=== PATIENT | male | born 1970 | race African-American/Black ===

== ENCOUNTER 2016-11-07 17:22 | Inpatient (IN) | payer OTHER ==
[~2016-11-07] VITALS: Ht 182.9 cm; Wt 126.7 kg
--- NOTE | ~2016-11-07 | 2DMMODE ---
[facility] [address] [place] [address] 2 D/M-MODE ECHOCARDIOGRAM Name: ERIK PERALES Room #: 209-P [facility] IN ..#: [id number] Admission: 11/07/16 Attend Phys: Francesca Watt Discharge: Date of : 68 Date of Service: 11/09/16 1522 Report #: [id number] THIS REPORT FOR: //name// APPROVED REPORT Study performed: 11/09/2016 11:53:20 EXAM: Comprehensive 2D, Doppler, and color-flow Echocardiogram Patient Location: Echo lab Room #: Formerly named [facility] Status: routine Other Information Study Quality: Adequate Indications CVA/TIA Hx: HTN, DM Echo Enhancing Agent Indication: Endocardial border delineation Agent(s) / Amount(s) Used: Definity 2 cc 2D Dimensions RVDd: 33.94 mm LVEF(%): 45.90 (>50%) IVSd: 14.84 (7-11mm) LVOT Diam: 22.27 (18-24mm) LVDd: 57.75 mm PWd: 15.08 (7-11mm) Ascending Ao: 38.68 (22-36mm) LVDs: 44.32 (25-40mm) Aortic Root: 38.68 mm Lopez's LVEF: 45.90 % Volumes Left Atrial Volume (Systole) Single Plane 4CH: 85.82 mL Single Plane 2CH: 63.80 mL LA ESV Index: 31.00 mL/m2 Aortic Valve AoV Peak Mohamud.: 1.21 m/s AO Peak Gr.: 5.83 mmHg LVOT Max P.74 mmHg LVOT Max V: 0.66 m/s BRANDON Vmax: 2.13 cm2 Mitral Valve E/A Ratio: 1.7 [facility] [place] [place] [address] 2 D/M-MODE ECHOCARDIOGRAM Name: ERIK PERALES Room #: 209-P [facility]..#: [id number] Admission: 11/07/16 Attend Phys: Francesca Watt Discharge: Date of : 68 Date of Service: 11/09/16 1522 Report #: [id number] MV Decel. Time: 168.19 ms MV E Max Mohamud.: 0.84 m/s MV A Mohamud.: 0.50 m/s MV PHT: 48.78 ms IVRT: 86.51 ms Pulmonary Valve PV Peak Mohamud.: 0.79 m/s PV Peak Gr.: 2.50 mmHg Pulmonary Vein P Vein S: 0.45 m/s P Vein A: 0.23 m/s P Vein D: 0.23 m/s P Vein A Dur.: 106.1 msec P Vein S/D Ratio: 1.96 Tricuspid Valve TR Peak Mohamud.: 2.60 m/s RAP Estimate: 5.00 mmHg TR Peak Gr.: 27.00 mmHg PA Pressure: 32.00 mmHg Left Ventricle Left ventricle is at the upper limits of normal. Moderate concentric left ventricular hypertrophy. Left ventricular systolic function is borderline. LVEF is 50%. The left ventricular diastolic function is normal. Right Ventricle The right ventricle is normal size. The right ventricular systolic function is normal. Atria Left atrium is at the upper limits of normal. Injection of bubbles documented no interatrial shunt. The right atrium size is normal. Aortic Valve The aortic valve is normal in structure. No aortic regurgitation is present. There is no aortic valvular stenosis. Mitral Valve The mitral valve is normal in structure. Mild mitral regurgitation. No evidence of mitral valve stenosis. Tricuspid Valve The tricuspid valve is normal in structure. There is trace to mild tricuspid regurgitation. The right atrial pressure is estimated at 5 mmHg. There is mild pulmonary hypertension with an estimated PAP of [facility] [address] [place] [address] 2 D/M-MODE ECHOCARDIOGRAM Name: ERIK PERALES Room #: 209-P [facility]#: [id number] Admission: 11/07/16 Attend Phys: Francesca Watt Discharge: Date of : 68 Date of Service: 11/09/16 1522 Report #: [id number] 32mmHg. Pulmonic Valve The pulmonary valve is normal in structure. There is no pulmonic valvular regurgitation. Great Vessels Aortic root is mildly dilated at upper limits of normal The ascending aorta is mildly dilated at upper limits of normal IVC is normal in size and collapses >50% with inspiration. Pericardium There is no pericardial effusion. <Conclusion> Left ventricle is at the upper limits of normal. LVEF is 50%. Left atrium is at the upper limits of normal. Injection of bubbles documented no interatrial shunt. The aortic valve is normal in structure. The mitral valve is normal in structure. Mild mitral regurgitation. The tricuspid valve is normal in structure. There is trace to mild tricuspid regurgitation. The right atrial pressure is estimated at 5 mmHg. There is mild pulmonary hypertension with an estimated PAP of 32mmHg. The pulmonary valve is normal in structure. Aortic root is mildly dilated at upper limits of normal The ascending aorta is mildly dilated at upper limits of normal <ELECTRONICALLY SIGNED> By: Román Ball MD 11/09/16 1522 1522 1522 Román Ball MD /INF
--- NOTE | ~2016-11-07 | EKG ---
[address] [place] [address] ELECTROCARDIOGRAM REPORT Name: ERIK PERALES Room #: 209-P ADM IN M.R.#: [id number] Admission: 11/07/16 Attend Phys: Evelyne Bonner Discharge: Date of : 68 Report #: [id number] THIS REPORT FOR: //name// [facility] ED Test Date: 2016-11-07 Test Time: 17:59:13 Pat Name: ERIK PERALES Department: Room: 209 Gender: M Painting Machine Operator: [id number] : 1970 Requested By: Stefanie Johns Order Number: [id number] MD: Nilay Mathews Measurements Intervals [place] Rate: 71 P: 23 CO: 185 QRS: -9 QRSD: 98 T: 120 QT: 401 QTc: 436 Interpretive Statements Sinus rhythm Probable left atrial enlargement LVH with secondary repolarization abnormality Inferior infarct, old No previous ECG available for comparison Electronically Signed On 11-08-2016 22:54:59 CDT by Nilay Mathews [email or web address] <ELECTRONICALLY SIGNED> By: Nilay Mathews MD 11/08/16 2254 1759 1759 Nilay Mathews MD /VIVIANA
[2016-11-07 17:22] VITALS: BP 193/143
[~2016-11-07 17:22] MED LIST: BACTRIM DS TAB1 EACH PO; CLEOCIN HCL300 MG PO; LISINOPRIL20 MG PO; NORCO 5-325 TA1 EACH PO; PENICILLIN V P500 MG PO; PERCOCET 5-3251 EACH PO; PERCOCET PO
[2016-11-07 17:55] LABS: BASOPHILS 1.1 % (0.0-2.0); EOSINOPHILS 2.9 % (0.0-3.0); HEMATOCRIT 45.5 % (42.0-52.0); HEMOGLOBIN 14.4 gm/dL (14.0-18.0); LYMPHOCYTES 29.3 % (24.0-44.0); MANUAL DIFF NO; MCH 24.4 pg (26.0-34.0); MCHC 31.6 g/dL (28.0-37.0); MONOCYTES 8.4 % (1.0-8.0); PLATELET COUNT 134 thou/uL (150-400); POLYS 58.3 % (36.0-66.0); RDW 13.3 % (10.5-14.5); WBC 5.2 thou/uL (4.0-11.0)
[2016-11-07 18:04] LABS: ANION GAP 9 mmol/L (7-16); BUN 16 mg/dL (7-18); CALCIUM 9.1 mg/dL (8.5-10.1); CHLORIDE 106 mmol/L (98-107); CO2 29 mmol/L (21-32); CREATININE 1.3 mg/dL (0.7-1.3); GLUCOSE 147 mg/dL (74-106); POTASSIUM 3.8 mmol/L (3.5-5.1); SODIUM 144 mmol/L (136-145)
[2016-11-07 18:11] LABS: INR 1.1; PROTIME 11.4 Seconds (9.3-11.4)
[2016-11-07 18:13] LABS: ALBUMIN 3.7 g/dL (3.4-5.0); ALKALINE PHOSPHATASE 111 U/L (46-116); SGOT 32 U/L (15-37); SGPT 40 U/L (30-65); TOTAL BILIRUBIN 0.4 mg/dL (<0.1-1.0); TOTAL PROTEIN 7.4 g/dL (6.4-8.2); TROPONIN-I < 0.04 ng/mL (<0.04-0.07)
[2016-11-07 19:58] LABS: CHOLESTEROL 181 mg/dL (<200); HDL CHOLESTEROL 44 mg/dL (>40); LDL CHOLESTEROL 109 mg/dL (<100); TC:HDL 4.1 Ratio (Not establshd); TRIGLYCERIDE 142 mg/dL (<150); VLDL 28 mg/dL (<40)
[2016-11-07 20:08] LABS: URINE BILIRUBIN NEGATIVE (Negative); URINE BLOOD NEGATIVE (Negative); URINE COLOR YELLOW; URINE GLUCOSE-RANDOM* NEGATIVE (Negative); URINE KETONES NEGATIVE (Negative); URINE NITRITE NEGATIVE (Negative); URINE PROTEIN (DIPSTICK) NEGATIVE (Negative); URINE UROBILINOGEN 0.2 E.U./dl (0.2-1.0)
[2016-11-07 21:05] VITALS: BP 182/118
[2016-11-07 21:35] VITALS: BP 169/127
[2016-11-07 23:57] VITALS: BP 165/117
[2016-11-08 02:58] LABS: HEMATOCRIT 45.2 % (42.0-52.0); HEMOGLOBIN 14.4 gm/dL (14.0-18.0); MCH 24.4 pg (26.0-34.0); MCHC 31.8 g/dL (28.0-37.0); MCV 76.7 fL (80.0-100.0); RBC 5.9 mil/uL (4.50-6.00); RDW 13.3 % (10.5-14.5); WBC 5.7 thou/uL (4.0-11.0)
[2016-11-08 03:04] LABS: CREATININE 1.4 mg/dL (0.7-1.3); POTASSIUM 3.3 mmol/L (3.5-5.1)
[2016-11-08 04:00] VITALS: BP 178/135
[2016-11-08 07:35] VITALS: BP 197/139
[2016-11-08 13:21] LABS: FOLIC ACID 14.8 ng/mL (8.6-58.9)
[2016-11-08 17:00] VITALS: BP 211/151
[2016-11-08 20:00] VITALS: BP 196/132
[2016-11-08 23:32] VITALS: BP 193/138
[2016-11-09 00:05] LABS: GLYCOHEMOGLOBIN (HGB A1C) 4.2 % (4.8-5.6)
[2016-11-09 04:57] VITALS: BP 166/104
[2016-11-09 08:29] VITALS: BP 191/136
[2016-11-09 10:18] VITALS: BP 191/136
[2016-11-09 11:17] VITALS: BP 190/135
[2016-11-09] MEDS ORDERED: LIPITOR 20 MG T20 M1 PO (13:18)
[2016-11-09] MEDS ORDERED: ASPIRIN325 PO (13:18)
[2016-11-09] MEDS ORDERED: HYDROCHLOROTHIA25 M2 PO (13:18)
[2016-11-09] MEDS ORDERED: LISINOPRIL20 MG PO (13:18)
[2016-11-09 13:58] VITALS: BP 190/135
[2016-11-11 01:06] LABS: DIL. RUSSELL VIPER VENOM 41.5 sec (0.0-47.0)
[2016-11-11 04:07] LABS: PROTEIN C ANTIGEN* 80 % (60-150)
== END 2016-11-09 16:10 | disposition home or self-care (01) | DRG 65 ==
LOC: ER 17:22 → EROBS 19:06 → 2N 19:06
PROVIDERS: Nurse Practitioner Family; Physician Assistant; Psychiatry & Neurology Neurology
DX: I63.9 Cerebral infarction, unspecified (principal); I16.1 Hypertensive emergency; R73.9 Hyperglycemia, unspecified; I10 Essential (primary) hypertension; E78.5 Hyperlipidemia, unspecified; Z79.899 Other long term (current) drug therapy; Z79.82 Long term (current) use of aspirin; Z83.3 Family history of diabetes mellitus; Z82.49 Family history of ischemic heart disease and other diseases of the circulatory system
CPT/HCPCS: 10081

== ENCOUNTER 2017-07-19 17:11 | Emergency (ER) | payer OTHER ==
[~2017-07-19] VITALS: Ht 182.9 cm; Wt 131.5 kg
--- NOTE | ~2017-07-19 | EKG ---
[facility] [place] [address] ELECTROCARDIOGRAM REPORT Name: ERIK PERALES Room #: [facility]#: [id number] Admission: 07/19/17 Attend Phys: Discharge: 07/19/17 Date of : 68 Report #: [id number] THIS REPORT FOR: //name// [facility] ED Test Date: 2017-07-19 Test Time: 17:21:00 Pat Name: ERIK PERALES Department: Room: Gender: Principal Clerk: : 1970 Requested By: Oscar Vargas Order Number: [id number] MD: Julio White Measurements Intervals [place] Rate: 92 P: 25 [place]: 166 QRS: -15 QRSD: 90 T: 138 QT: 366 QTc: 453 Interpretive Statements Sinus rhythm Probable left atrial enlargement LVH with secondary repolarization abnormality Inferior infarct, old Baseline wander in lead(s) I,V2,V3 Compared to ECG 11/07/2016 17:59:13 No significant changes Electronically Signed On 07-23-2017 13:05:48 CDT by Julio White [email or web address] <ELECTRONICALLY SIGNED> By: Julio White MD, [facility] 07/23/17 1305 1721 172 Julio White MD, [facility] /EPI
[~2017-07-19 17:11] MED LIST changes: +ASPIRIN325 PO; +HYDROCHLOROTHIA25 M2 PO; +LIPITOR 20 MG T20 M1 PO
[2017-07-19] MEDS ORDERED: NORVASC10 MG PO (17:41)
[2017-07-19 17:43] LABS: ABSOLUTE NEUTROPHILS 6.8 thou/uL (1.4-8.2); BASOPHILS 0.6 % (0.0-2.0); EOSINOPHILS 0.6 % (0.0-3.0); HEMATOCRIT 54.9 % (42.0-52.0); HEMOGLOBIN 17.5 gm/dL (14.0-18.0); LYMPHOCYTES 22.6 % (24.0-44.0); MCH 24.4 pg (26.0-34.0); MCHC 31.8 g/dL (28.0-37.0); MCV 76.7 fL (80.0-100.0); MONOCYTES 10.1 % (1.0-8.0); PLATELET COUNT 203 thou/uL (150-400); POLYS 66.1 % (36.0-66.0); RDW 13.7 % (10.5-14.5); WBC 10.3 thou/uL (4.0-11.0)
[2017-07-19 17:47] LABS: ANION GAP 10 mmol/L (7-16); BUN 29 mg/dL (7-18); CALCIUM 9.8 mg/dL (8.5-10.1); CHLORIDE 97 mmol/L (98-107); CO2 30 mmol/L (21-32); CREATININE 1.3 mg/dL (0.7-1.3); GLUCOSE 116 mg/dL (74-106); POTASSIUM 3.4 mmol/L (3.5-5.1); SODIUM 137 mmol/L (136-145)
[2017-07-19 17:55] LABS: ALBUMIN 3.5 g/dL (3.4-5.0); SGOT 22 U/L (15-37); SGPT 25 U/L (30-65); TOTAL BILIRUBIN 0.6 mg/dL (<0.1-1.0); TOTAL PROTEIN 8.2 g/dL (6.4-8.2); TROPONIN-I < 0.04 ng/mL (<0.06)
[2017-07-19 18:03] LABS: RBC 6.69 mil/uL (4.50-6.00)
[2017-07-19 18:33] LABS: APTT 31.5 Seconds (24.5-32.8); INR 1.2; PROTIME 11.8 Seconds (9.3-11.4)
[2017-07-19 18:57] LABS: URINE BILIRUBIN 1+ (Negative); URINE BLOOD 1+ (Negative); URINE CLARITY CLEAR; URINE COLOR YELLOW; URINE GLUCOSE-RANDOM* NEGATIVE (Negative); URINE KETONES NEGATIVE (Negative); URINE LEUKOCYTES-REFLEX NEGATIVE (Negative); URINE NITRITE-REFLEX NEGATIVE (Negative); URINE PROTEIN (DIPSTICK) 2+ (Negative); URINE SPECIFIC GRAVITY >= 1.030 (1.005-1.035)
[2017-07-19 19:00] LABS: ICTOTEST (BILI CONFIRMATORY) Negative (Negative)
[2017-07-19 19:05] LABS: AMP/METHAMP Negative (Negative); BARBITURATES Negative (Negative); BENZODIAZEPINES Negative (Negative); COCAINE Negative (Negative); METHADONE Negative (Negative); OPIATES Negative (Negative); PCP Negative (Negative)
[2017-07-19 19:09] LABS: BACTERIA-REFLEX None Seen /HPF (None Seen); CRYSTALS None Seen /LPF (None Seen); HYALINE CASTS 0-3 Few /LPF (None Seen); MUCUS >6 Heavy strn/LPF (None Seen); SQUAMOUS 0-3 Few /LPF (0-3); URINE RBC 0-2 Rare /HPF (0-2); URINE WBC-REFLEX 0-5 Rare /HPF (0-5)
[2017-07-19 19:52] VITALS: BP 133/84
== END 2017-07-19 19:54 | disposition short-term general hospital (02) ==
LOC: ER 17:11
PROVIDERS: Physician Assistant
DX: I61.5 Nontraumatic intracerebral hemorrhage, intraventricular (principal); I10 Essential (primary) hypertension; R51 Headache